=== PATIENT | male | born 1960 | race Caucasian/White ===

== ENCOUNTER 2018-08-27 15:35 | Observation (INO) | payer OTHER ==
[2018-08-27] MEDS ORDERED: METHYLPREDNISOLONE 125 MG INJ ONE (16:11)
[2018-08-27] MEDS ORDERED: ALBUTEROL 2.5 MG/3 ML NEB SOL ONE (16:11)
[2018-08-27] MEDS ORDERED: Magnesium Sulfate 2gm IVPB 2 G/50 ML BAG IV ONE (16:11)
[2018-08-27] MEDS ORDERED: IPRATROPIUM BROM 0.5MG/2.5ML ONE (16:11)
--- NOTE | 2018-08-27 16:28 | RAD REPORT ---
EXAM DESCRIPTION: RAD - Chest Single View - 08/27/2018 4:20 pm CLINICAL HISTORY: SOB Chest pain. COMPARISON: Chest Pa And Lat (2 Views) dated 03/14/2018 FINDINGS: Portable technique limits examination quality. Lungs are mildly emphysematous but clear. The heart is normal in size. No displaced fractures. IMPRESSION: Mild COPD.
[2018-08-27 16:30] LABS: Absolute Lymphocytes (CBC) 2.3 K/uL (0.7-4.9); Absolute Monocytes 1.2 K/uL (0.1-1.3); Basophils % 0.7 % (0-1.3); Eosinophils % 10.1 % (0-4.4); Lymphocytes % 24.4 % (15.3-44.8); Monocytes % 12.2 % (3.3-12.3); RBC Red Blood Cell Count 5.52 M/uL (4.33-5.43)
[2018-08-27 16:41] LABS: Protime INR 1.02
[2018-08-27 16:55] LABS: ALT/SGPT 16 U/L (12-78); AST/SGOT 9 U/L (15-37); Albumin 3.6 g/dL (3.4-5.0); Alkaline Phosphatase 71 U/L (45-117); BUN Blood Urea Nitrogen 15 mg/dL (7-18); Bicarbonate 26 mmol/L (21-32); Bilirubin Direct < 0.1 mg/dL (0-0.2); Bilirubin Total 0.3 mg/dL (0.2-1.0); Glucose Level 247 mg/dL (74-106); Magnesium 2.1 mg/dL (1.8-2.4); NT PRO-BNP 10 pg/mL (<125); Potassium 4.1 mmol/L (3.5-5.1); Protein, Total 8.3 g/dL (6.4-8.2); Sodium Level 137 mmol/L (136-145)
[2018-08-27] MEDS ORDERED: NA CHLORIDE 0.9% 1,000 ML ONE (16:55)
[2018-08-27] MEDS ORDERED: LEVALBUTEROL 1.25 MG/3 ML NEB ONE (17:13)
--- NOTE | 2018-08-27 17:27 | RAD REPORT ---
EXAM DESCRIPTION: CT - Chest For Pe Angio - 08/27/2018 5:19 pm CLINICAL HISTORY: Chest pain. SOB COMPARISON: No comparisons TECHNIQUE: CT angiogram of the pulmonary arteries was performed with MIP. All CT scans are performed using dose optimization technique as appropriate and may include automated exposure control or mA/KV adjustment according to patient size. FINDINGS: No evidence of pulmonary thromboembolism. No acute aortic finding demonstrated. Evidence of a mild aortic coarctation. The lungs are clear. No significant pericardial or pleural fluid. No concerning bony finding. IMPRESSION: No evidence of pulmonary thromboembolism. Mild aortic coarctation noted. No acute intrapulmonary finding.
--- NOTE | 2018-08-27 18:52 | EDPHYS ---
Physician Documentation [facility] Name: Donovan Baxter Age: 57 yrs Sex: Male : 1960 Arrival Date: 08/27/2018 Time: 15:37 Bed 8 Private MD: Hari Machuca ED Physician Stas Beuno HPI: 08/27 16:09 This 57 yrs old Male presents to ER via Wheelchair with complaints of cp Breathing Difficulty. 16:09 The patient has shortness of breath at rest. Onset: The symptoms/episode began/occurred cp 3 day(s) ago. Duration: The symptoms are continuous, and are steadily getting worse. The patient's shortness of breath is aggravated by talking, walking. Associated signs and symptoms: Pertinent positives: productive cough, Pertinent negatives: diaphoresis, fever, hemoptysis, vomiting. Severity of symptoms: in the emergency department the symptoms are unchanged despite home interventions. Historical: - Allergies: 15:45 No Known Allergies; hb - PMHx: 15:45 COPD; hb - PSHx: 15:45 Appendectomy; hb - Immunization history:: Adult Immunizations up to date. - Social history:: Smoking status: Patient/guardian denies using tobacco. - Ebola Screening: : No symptoms or risks identified at this time. ROS: 16:12 Eyes: Negative for injury, pain, redness, and discharge. cp 16:12 Constitutional: Negative for body aches, chills, fever, poor PO intake. 16:12 ENT: Negative for drainage from ear(s), ear pain, sore throat, difficulty swallowing, difficulty handling secretions. 16:12 Respiratory: Positive for cough, with white sputum, shortness of breath, at rest. wheezing, Negative for hemoptysis. 16:12 Abdomen/GI: Negative for abdominal pain, nausea, vomiting, and diarrhea, constipation, anorexia. 16:12 Back: Negative for pain at rest, pain with movement, radiated pain. 16:12 : Negative for urinary symptoms. 16:12 Skin: Negative for cellulitis, rash. 16:12 Neuro: Negative for altered mental status, headache, weakness. 16:12 All other systems are negative. Exam: 16:14 Head/Face: Normocephalic, atraumatic. cp 16:14 Constitutional: The patient appears alert, awake, non-diaphoretic, non-toxic, well developed, well nourished, in obvious distress, mildly distressed. 16:15 Eyes: Periorbital structures: appear normal, Conjunctiva: normal, no exudate, no cp injection, Lids and lashes: appear normal, bilaterally. 16:15 ENT: External ear(s): are unremarkable, Ear canal(s): are normal, clear, TM's: bulging, cp is not appreciated, bilaterally, dullness, bilaterally, erythema, is not appreciated, bilaterally, Nose: is normal, Mouth: Lips: moist, Oral mucosa: moist, Posterior pharynx: Airway: no evidence of obstruction, patent, Tonsils: are normal in appearance, Uvula: midline, swelling, is not appreciated, erythema, is not appreciated. 16:15 Neck: ROM/movement: is normal, is supple, without pain, no range of motions limitations, no meningismus, no nuchal rigidity, Lymph nodes: no appreciated lymphadenopathy. 16:15 Chest/axilla: Inspection: normal, Palpation: is normal, no crepitus, no tenderness. 16:15 Cardiovascular: Rate: tachycardic, Rhythm: regular, Edema: is not appreciated, JVD: is not appreciated. 16:15 Respiratory: moderate respiratory distress is noted, Respirations: labored breathing, that is moderate, pursed lip breathing, that is moderate, tachypnea, that is moderate, Breath sounds: decreased breath sounds, that are moderate, throughout, stridor, is not appreciated, + upper airway congestion. wheezing: that is mild, is heard diffusely. 16:15 Abdomen/GI: Inspection: abdomen appears normal, Palpation: abdomen is soft and non-tender, in all quadrants. 16:15 Back: pain, is absent, ROM is normal. 16:15 Skin: cellulitis, is not appreciated, no rash present. 16:15 Neuro: Orientation: to person, place \T\ time. Mentation: is normal, Cerebellar function: is grossly normal, Motor: moves all fours, strength is normal, Sensation: is normal. 16:37 ECG was reviewed by the Attending Physician. Vital Signs: 15:44 BP 141 / 96; Pulse 112; Resp 20; Temp 97.8; Pulse Ox 94% on R/A; Weight 82.55 kg; hb Height 6 ft. (182.88 cm); Pain 6/10; 16:15 BP 140 / 95; Pulse 102; Resp 24; Pulse Ox 98% on Nebulizer Mask; bp 16:50 BP 133 / 90; Pulse 99; Resp 28; Pulse Ox 93% on R/A; bp 17:04 BP 131 / 90; Pulse 95; Resp 24; Pulse Ox 99% on Nebulizer Mask; bp 17:47 BP 134 / 77; Pulse 98; Resp 20; Pulse Ox 100% on Nebulizer Mask; bp 18:40 BP 110 / 74; Pulse 108; Resp 28; Pulse Ox 89% on R/A; bp 19:30 BP 146 / 81; Pulse 104; Resp 23 S; Temp 98.1(O); Pulse Ox 93% on 1 lpm NC; cc3 20:18 BP 139 / 83; Pulse 103; Resp 20 S; Temp 98(O); Pulse Ox 92% on 1 lpm NC; cc3 21:30 BP 136 / 87; Pulse 101; Resp 17 S; Temp 98(O); Pulse Ox 92% on 1 lpm NC; cc3 15:44 Body Mass Index 24.68 (82.55 kg, 182.88 cm) hb 18:40 POST AMBULATION bp MDM: 15:46 Patient medically screened. cp 16:30 Differential diagnosis: Bronchitis CHF exacerbation, Chronic Obstructive Pulmonary cp Disease Myocardial Infarction pneumonia, Pneumothorax pulmonary edema, Pulmonary Embolism reactive airway disease, Unstable Angina. 18:42 ED course: VS noted. Patient continues to have expiratory wheezes bilaterally, mild cp tachypnea, tachycardia. Patient became short of breath and pale with walking in ED. Will admit for continued breathing treatments. 18:43 Data reviewed: vital signs, nurses notes, lab test result(s), EKG, radiologic studies, cp CT scan, plain films. 18:43 Antibiotic administration: Not indicated, the patient does not have an appreciated cp infiltrate. Test interpretation: by ED physician or midlevel provider: ECG, plain radiologic studies. Response to treatment: the patient's symptoms have mildly improved after treatment, and as a result, I will admit patient. 18:45 Physician consultation: Zenia Dominique MD was called at 18:46, regarding admission, to the medical/surgical unit. left message on voicemail. 08/27 16:02 Order name: Basic Metabolic Panel 08/27 16:02 Order name: CBC with Diff 08/27 16:02 Order name: LFT's; Complete Time: 17:02 08/27 16:56 Interpretation: Normal except: AST 9; TP 8.3; GLOB 4.7; A/G 0.8. 08/27 16:02 Order name: Magnesium; Complete Time: 17:02 cp 08/27 16:02 Order name: NT PRO-BNP; Complete Time: 17:02 08/27 16:02 Order name: PT-INR; Complete Time: 16:56 08/27 16:02 Order name: Troponin (emerg Dept Use Only); Complete Time: 16:56 cp 08/27 16:02 Order name: Influenza Screen (a \T\ B); Complete Time: 16:56 cp 08/27 16:02 Order name: D-Dimer; Complete Time: 16:56 08/27 16:04 Order name: Basic Metabolic Panel; Complete Time: 17:02 EDMS 08/27 16:04 Order name: CBC with Automated Diff; Complete Time: 16:56 EDMS 08/27 21:47 Order name: Glucose, Ancillary Testing EDMS 08/27 21:47 Order name: Glucose, Ancillary Testing EDMS 08/27 21:47 Order name: Glucose, Ancillary Testing EDMS 08/27 16:02 Order name: XRAY Chest (1 view); Complete Time: 16:37 08/27 16:37 Interpretation: Report review. 08/27 16:02 Order name: EKG; Complete Time: 16:05 08/27 16:02 Order name: Cardiac monitoring; Complete Time: 16:20 08/27 16:02 Order name: EKG - Nurse/Tech; Complete Time: 16:59 08/27 16:02 Order name: IV Saline Lock; Complete Time: 16:20 08/27 16:02 Order name: Labs collected and sent; Complete Time: 16:20 08/27 16:02 Order name: O2 Per Protocol; Complete Time: 16:20 08/27 16:02 Order name: O2 Sat Monitoring; Complete Time: 16:20 08/27 17:02 Order name: CT Chest For PE Angio; Complete Time: 17:29 cp 08/27 17:31 Order name: Accucheck Blood Glucose; Complete Time: 17:47 cp 08/27 18:41 Order name: Oxygen Per Protocol; Complete Time: 18:42 cp EC:37 Rate is 101 beats/min. Rhythm is regular. MN interval is normal. QRS interval is cp normal. QT interval is normal. T waves are Flattened in lead aVL. Interpreted by me. Reviewed by me. Administered Medications: 16:00 Drug: Magnesium Sulfate 2 grams Route: IVPB; Infused Over: 2 hrs; Site: right forearm; bp 16:00 Drug: NS 0.9% 500 ml Route: IV; Rate: bolus; Site: right forearm; bp 16:00 Drug: Albuterol - atroVENT (3:1) (2.5 mg - 0.5 mg) 3 ml Route: Nebulizer; bp 16:47 Follow up: Response: Marked relief of symptoms bp 16:00 Drug: SOLU-Medrol 80 mg Route: IVP; Site: right forearm; bp 16:46 Follow up: Response: No adverse reaction bp 16:09 CANCELLED (Physician Discretion): NS 0.9% 500 ml IV at 125 ml/hr continuous cp 16:19 CANCELLED (Physician Discretion): SOLU-Medrol 125 mg IVP once bp 17:00 Drug: Xopenex (3) 1.25 mg Route: Inhalation; bp Point of Care Testing: Blood Glucose: 17:47 Blood Glucose: 246 mg/dL; bp 21:43 Blood Glucose: 316 mg/dL; oe Ranges: Critical Glucose Levels:Adult <50 mg/dl or >400 mg/dl <40 mg/dl or >180 mg/dl Disposition: 08/27/18 18:51 Hospitalization ordered by [place] Deal for Inpatient Admission. Preliminary diagnosis are Hypoxemia, Chronic obstructive pulmonary disease with (acute) exacerbation, Tachypnea, not elsewhere classified. - Bed requested for Telemetry/MedSurg (Inpatient). - Status is Inpatient Admission. cc3 - Condition is Stable. - Problem is an acute exacerbation. - Symptoms have improved. UTI on Admission? No Addendum: 09/04/2018 01:40 Co-signature as Attending Physician, Stas Bueno MD. r n Signatures: Dispatcher [employer] EDMS Bethanie Gonzalez RN RN mw Nieto, Roman, MD MD rn Page, Corey, PA PA cp Baxter, Heather, RN RN hb Peltier, Brian RN RN bp Ragini Fischer cc3 Corrections: (The following items were deleted from the chart) 08/27 16:09 16:02 NS 0.9% 500 ml IV at 125 ml/hr continuous ordered. cp cp 16:19 16:02 SOLU-Medrol 125 mg IVP once ordered. cp bp 19:18 18:51 Hospitalization Ordered by Cleveland Deal MD for Inpatient Admission. Preliminary cp diagnosis is Hypoxemia; Chronic obstructive pulmonary disease with (acute) exacerbation. Bed requested for Telemetry/MedSurg (Inpatient). Status is Inpatient Admission. Condition is Stable. Problem is an acute exacerbation. Symptoms have improved. UTI on Admission? No. cp 21:14 19:18 08/27/2018 18:51 Hospitalization Ordered by Cleveland Deal MD for Inpatient mw Admission. Preliminary diagnosis is Hypoxemia; Chronic obstructive pulmonary disease with (acute) exacerbation; Tachypnea, not elsewhere classified. Bed requested for Telemetry/MedSurg (Inpatient). Status is Inpatient Admission. Condition is Stable. Problem is an acute exacerbation. Symptoms have improved. UTI on Admission? No. cp 22:15 21:14 08/27/2018 18:51 Hospitalization Ordered by Cleveland Deal MD for Inpatient cc3 Admission. Preliminary diagnosis is Hypoxemia; Chronic obstructive pulmonary disease with (acute) exacerbation; Tachypnea, not elsewhere classified. Bed requested for Telemetry/MedSurg (Inpatient). Status is Inpatient Admission. Condition is Stable. Problem is an acute exacerbation. Symptoms have improved. UTI on Admission? No. mw
--- NOTE | 2018-08-27 18:52 | ER ---
Nurse's Notes [facility] Name: Donovan Baxter Age: 57 yrs Sex: Male : 1960 Arrival Date: 08/27/2018 Time: 15:37 Bed 8 Private MD: Hari Machuca Diagnosis: Hypoxemia;Chronic obstructive pulmonary disease with (acute) exacerbation;Tachypnea, not elsewhere classified Presentation: 08/27 15:43 Presenting complaint: Productive cough with white sputum and SOB x 2-3 days. Transition hb of care: patient was not received from another setting of care. Onset of symptoms was August 25, 2018. Risk Assessment: Do you want to hurt yourself or someone else? Patient reports no desire to harm self or others. Care prior to arrival: None. 15:43 Method Of Arrival: Wheelchair hb 15:43 Acuity: SHELIA 3 hb 19:15 Initial Sepsis Screen: Does the patient meet any 2 criteria? No. Patient's initial cc3 sepsis screen is negative. Does the patient have a suspected source of infection? No. Patient's initial sepsis screen is negative. Triage Assessment: 15:45 General: Appears in no apparent distress. comfortable, Behavior is cooperative, bp appropriate for age, anxious. Pain: Denies pain. EENT: No deficits noted. Neuro: Level of Consciousness is awake, alert, obeys commands, Oriented to person, place, time, situation, Appropriate for age. Cardiovascular: Rhythm is sinus tachycardia. Respiratory: Reports shortness of breath cough that is Airway is patent Respiratory effort is even, labored, pursed lip, Respiratory pattern is regular, symmetrical, hyperventilation Onset: The symptoms/episode began/occurred gradually, the patient has moderate shortness of breath. GI: No signs and/or symptoms were reported involving the gastrointestinal system. : No signs and/or symptoms were reported regarding the genitourinary system. Derm: No deficits noted. Musculoskeletal: Circulation, motion, and sensation intact. Range of motion: intact in all extremities. Historical: - Allergies: 15:45 No Known Allergies; hb - PMHx: 15:45 COPD; hb - PSHx: 15:45 Appendectomy; hb - Immunization history:: Adult Immunizations up to date. - Social history:: Smoking status: Patient/guardian denies using tobacco. - Ebola Screening: : No symptoms or risks identified at this time. Screenin:00 Abuse screen: Denies threats or abuse. Denies injuries from another. Nutritional bp screening: No deficits noted. Tuberculosis screening: No symptoms or risk factors identified. Fall Risk None identified. Assessment: 15:50 General: SEE TRIAGE NOTE. Cardiovascular: Rhythm is sinus tachycardia. Respiratory: bp Airway is patent Respiratory effort is even, labored, pursed lip, Respiratory pattern is regular, symmetrical, hyperventilation Breath sounds with wheezes bilaterally. : No signs and/or symptoms were reported regarding the genitourinary system. 17:03 Reassessment: MEDS INFUSING, PT STATING SOME RELIEF OF S/S. bp 18:00 Reassessment: CT COMPLETED, RESULTS PENDING. bp 18:41 Reassessment: SPO2 89 POST AMBULATION, +EXPIRATORY WHEEZES AND PURSED LIP BREATHING. bp 19:15 Reassessment: Patient appears in no apparent distress at this time. Patient and/or cc3 family updated on plan of care and expected duration. Pain level reassessed. Patient is alert, oriented x 3, equal unlabored respirations, skin warm/dry/pink. Received this male patient from morning shift RN Claus as a case of breathing difficulty for admission awaiting admission orders and room availability. With IV cannula gauge 20 at the right wrist saline locked. On oxygen therapy by nasal cannula at 1LPM saturating at 93%. 20:18 Reassessment: Patient appears in no apparent distress at this time. Patient and/or cc3 family updated on plan of care and expected duration. Pain level reassessed. Patient is alert, oriented x 3, equal unlabored respirations, skin warm/dry/pink. 21:43 Reassessment: Patient appears in no apparent distress at this time. Patient and/or cc3 family updated on plan of care and expected duration. Pain level reassessed. Patient is alert, oriented x 3, equal unlabored respirations, skin warm/dry/pink. Patient asked for his blood sugar to be checked because he thinks it's low so checked with result of 316 mg/dL, patient said he's taking insulin 70/30 twice a day and he hasn't taken his night dose, informed PA Page and he said the patient is for admission so he will be ordered with his regular dose of insulin once admitted. Patient denies pain at this time. 21:50 Reassessment: Patient appears in no apparent distress at this time. Patient and/or cc3 family updated on plan of care and expected duration. Pain level reassessed. Patient is alert, oriented x 3, equal unlabored respirations, skin warm/dry/pink. Room available at 431, report called and handed over to WALE Whitaker for continuity of care and management. 22:10 Reassessment: Patient appears in no apparent distress at this time. Patient and/or cc3 family updated on plan of care and expected duration. Pain level reassessed. Patient is alert, oriented x 3, equal unlabored respirations, skin warm/dry/pink. Patient left ER for admission vitally stable by wheelchair escorted by medical laboratory technician Zaire, on oxygen therapy by nasal cannula. Patient denies pain at this time. Patient states symptoms have improved. Vital Signs: 15:44 BP 141 / 96; Pulse 112; Resp 20; Temp 97.8; Pulse Ox 94% on R/A; Weight 82.55 kg; hb Height 6 ft. (182.88 cm); Pain 6/10; 16:15 BP 140 / 95; Pulse 102; Resp 24; Pulse Ox 98% on Nebulizer Mask; bp 16:50 BP 133 / 90; Pulse 99; Resp 28; Pulse Ox 93% on R/A; bp 17:04 BP 131 / 90; Pulse 95; Resp 24; Pulse Ox 99% on Nebulizer Mask; bp 17:47 BP 134 / 77; Pulse 98; Resp 20; Pulse Ox 100% on Nebulizer Mask; bp 18:40 BP 110 / 74; Pulse 108; Resp 28; Pulse Ox 89% on R/A; bp 19:30 BP 146 / 81; Pulse 104; Resp 23 S; Temp 98.1(O); Pulse Ox 93% on 1 lpm NC; cc3 20:18 BP 139 / 83; Pulse 103; Resp 20 S; Temp 98(O); Pulse Ox 92% on 1 lpm NC; cc3 21:30 BP 136 / 87; Pulse 101; Resp 17 S; Temp 98(O); Pulse Ox 92% on 1 lpm NC; cc3 15:44 Body Mass Index 24.68 (82.55 kg, 182.88 cm) hb 18:40 POST AMBULATION bp ED Course: 15:37 Patient arrived in ED. dl4 15:37 Hari Machuca DO is Private Physician. dl4 15:44 Triage completed. hb 15:45 Arm band placed on. hb 15:46 Keshawn Wayne PA is PHCP. cp 15:46 Stas Bueno MD is Attending Physician. cp 15:47 Claus Lacey, WALE is Primary Nurse. bp 16:00 Patient has correct armband on for positive identification. Bed in low position. Call bp light in reach. Side rails up X2. 16:00 Inserted saline lock: 20 gauge in right forearm, using aseptic technique. Blood bp collected. 16:12 XRAY Chest (1 view) In Process Unspecified. EDMS 16:23 EKG done, by ekg/ecg technician. reviewed by Keshawn PENALOZA. sm3 17:[address] via stretcher. sj 17:19 CT Chest For PE Angio In Process Unspecified. EDMS 18:48 Cleveland Deal MD is Hospitalizing Provider. cp 22:15 No provider procedures requiring assistance completed. Patient admitted, IV remains in cc3 place. Administered Medications: 16:00 Drug: Magnesium Sulfate 2 grams Route: IVPB; Infused Over: 2 hrs; Site: right forearm; bp 16:00 Drug: NS 0.9% 500 ml Route: IV; Rate: bolus; Site: right forearm; bp 16:00 Drug: Albuterol - atroVENT (3:1) (2.5 mg - 0.5 mg) 3 ml Route: Nebulizer; bp 16:47 Follow up: Response: Marked relief of symptoms bp 16:00 Drug: SOLU-Medrol 80 mg Route: IVP; Site: right forearm; bp 16:46 Follow up: Response: No adverse reaction bp 16:09 CANCELLED (Physician Discretion): NS 0.9% 500 ml IV at 125 ml/hr continuous cp 16:19 CANCELLED (Physician Discretion): SOLU-Medrol 125 mg IVP once bp 17:00 Drug: Xopenex (3) 1.25 mg Route: Inhalation; bp Point of Care Testing: Blood Glucose: 17:47 Blood Glucose: 246 mg/dL; bp 21:43 Blood Glucose: 316 mg/dL; oe Ranges: Outcome: 18:51 Decision to Hospitalize by Provider. cp 22:15 Patient left the ED. cc3 22:15 Admitted to Tele accompanied by tech, via wheelchair, room 431, with oxygen, with cc3 chart, Report called to Dahiana Julianne 22:15 Condition: stable 22:15 Instructed on the need for admit, Demonstrated understanding of instructions. Signatures: Dispatcher [employer] Bella Hernandez Corey, PA PA cp Baxter, Heather, RN RN Zaire Corona Brian RN RN Aundrea Ramirez sm3 Ragini Fischer cc3 Gavin Ospina dl4 Corrections: (The following items were deleted from the chart) 18:57 18:41 Reassessment: SPO2 89 POST AMBULATION, +EXPIRATORY WHEEZES bp bp
[2018-08-28 01:00] LABS: Urine Appearance CLEAR; Urine Bilirubin NEGATIVE (NEG); Urine Blood NEGATIVE (NEG); Urine Color YELLOW; Urine Glucose 3+ (NEG); Urine Protein NEGATIVE (NEG); Urine Specific Gravity >=1.030 (1.005-1.030); Urine Urobilinogen 0.2 mg/dL (0.2-1.0)
[2018-08-28 01:01] LABS: Urine Microscopic Reflex NO UMIC
[2018-08-28] MEDS ORDERED: MORPHINE 2 MG/ML SYR IV ONE (01:40)
[2018-08-28] MEDS: ALBUTEROL 2.5 MG/3 ML NEB SOL NEB SCH ×2 (01:50→07:30)
[2018-08-28] MEDS: IPRATROPIUM BROM 0.5MG/2.5ML NEB SCH ×2 (01:50→07:30)
[2018-08-28] MEDS: METHYLPREDNISOLONE 125 MG INJ IV SCH ×2 (01:51→05:50)
[2018-08-28] MEDS ORDERED: CEFTRIAXONE/SWI 1gm 1 GM/10 ML SYR ONE (02:19)
[2018-08-28] MEDS ORDERED: LORATADINE 10 MG TAB PO SCH (08:00)
[2018-08-28] MEDS ORDERED: CEFTRIAXONE 1 GM/NS 50 ML 1 GM/50 ML BAG IV SCH (08:00)
[2018-08-28] MEDS ORDERED: GUAIFENESIN/CODEINE 5ML UCUP PO PRN (08:15)
--- NOTE | 2018-08-28 08:19 | P.HP ---
Certification for Inpatient Patient admitted to: Inpatient With expected LOS: >2 Midnights Patient will require the following post-hospital care: None Practitioner: I am a practitioner with admitting privileges, knowledge of patient current condition, hospital course, and medical plan of care. Services: Services provided to patient in accordance with Admission requirements found in Title 42 Section 412.3 of the Code of Federal Regulations Patient History Date of Service: 08/27/18 Reason for admission: shortness of breath History of Present Illness: Patient is a 57-year-old gentleman who came to the hospital with difficulty breathing. Patient was coughing and congested and had wheezing. Patient also gets very anxious when he is not able to breathe after his coughing episodes. He was very short of breath and came into the ER. Initially he was given multiple neb treatments and IV steroids. His clinical condition has improved somewhat. However, once he got to the floor he had another episode were he had a coughing spell and desatted. He was given a neb treatments and placed on O2. He is feeling better after the breathing treatment. Will go ahead and continue with current plan of care for treatment of his COPD. Cough medication as well. Patient also complaining with pain on deep inspiration. His CT scan did not reveal any evidence of pleurisy/pleuritis nor did he have a pneumonia. He probably has COPD exacerbation and he has outpatient Pulmonary follow-up. Patient also needs to refrain from tobacco use with his respiratory condition. At this time patient will be admitted to the hospital for further workup. Allergies No Known Allergies Allergy (Unverified 08/28/18 07:09) Home Medications: Albuterol Inhaler [Ventolin Inhaler] 2 puff IH Q6H PRN 08/27/18 Insulin 70/30 NPH/Reg Human [Novolin 70/30*] 45 units SQ BID 08/27/18 Lisinopril 10 mg PO DAILY 08/27/18 Metformin HCl [Metformin ER Osmotic] 1,000 mg PO BID 08/27/18 Pravastatin Sodium [Pravachol] 80 mg PO BEDTIME 08/27/18 Venlafaxine HCl [Venlafaxine HCl ER] 75 mg PO DAILY 08/28/18 - Past Medical/Surgical History Has patient received pneumonia vaccine in the past: Yes Diabetic: Yes -: COPD -: IDDM -: Hepatitis C -: Appendectomy - Family History Father Medical History: Lung disease - Social History Smoking Status: Current every day smoker Alcohol use: No CD- Drugs: No Caffeine use: Yes Place of Residence: Home Review of Systems 10-point ROS is otherwise unremarkable Physical Examination - Vital Signs Temperature: 97.6 F Blood Pressure: 140/83 Pulse: 97 Respirations: 16 Pulse Ox (%): 94 - Physical Exam General: Alert, In no apparent distress, Oriented x3 HEENT: Atraumatic, PERRLA, Mucous membr. moist/pink, EOMI, Sclerae nonicteric Neck: Supple, 2+ carotid pulse no bruit, No LAD, Without JVD or thyroid abnormality Respiratory: Diminished, Expiratory wheezes Cardiovascular: Regular rate/rhythm, Normal S1 S2, No murmurs Gastrointestinal: Normal bowel sounds, Soft and benign, Non-distended, No tenderness Musculoskeletal: No clubbing, No swelling, No tenderness Integumentary: No rashes Neurological: Normal gait, Normal speech, Normal strength at 5/5 x4 extr, Normal tone, Sensation intact, Cranial nerves 3-12 intact, Normal affect Lymphatics: No axilla or inguinal lymphadenopathy - Studies Laboratory Data (last 24 hrs) 08/27/18 16:15: PT 12.0, INR 1.02 08/27/18 16:15: WBC 9.5, Hgb 15.6, Hct 47.0, Plt Count 250 08/27/18 16:15: Sodium 137, Potassium 4.1, BUN 15, Creatinine 0.96, Glucose 247 H, Magnesium 2.1, Total Bilirubin 0.3, AST 9 L, ALT 16, Alkaline Phosphatase 71 Microbiology Data (last 24 hrs): 08/27/18 16:15 Nasopharnyx Influenza Type A Antigen Screen - Final 08/27/18 16:15 Nasopharnyx Influenza Type B Antigen Screen - Final Assessment & Plan - Problems (Diagnosis) (1) COPD with acute exacerbation Current Visit: Yes Status: Acute (2) Persistent cough Current Visit: Yes Status: Acute (3) Hypoxemia Current Visit: Yes Status: Acute (4) Tobacco abuse Current Visit: Yes Status: Acute (5) DM2 (diabetes mellitus, type 2) Current Visit: Yes Status: Acute Qualifiers: Diabetes mellitus 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 -peak flow measurements -outpatient spirometry or pulmonary function testing -repeat chest x-ray -cough medication and continue anxiolytics long-term -strict BS control Discharge Plan: Home Plan to discharge in: Greater than 2 days - Advance Directives Does patient have a Living Will: No Does patient have a Durable POA for Healthcare: No - Code Status/Comfort Care Code Status Assessed: Yes Code Status: Full Code Critical Care: No Time Spent Managing PTS Care (In Minutes): 50
[2018-08-28] MEDS ORDERED: VENLAFAXINE HCL XR 75 MG CAP PO SCH (09:00)
[2018-08-28] MEDS ORDERED: INSULIN 70/30 100 UNITS/ML SQ SCH (09:00)
[2018-08-28] MEDS ORDERED: METFORMIN ER 500 MG TAB PO SCH (09:00)
[2018-08-28] MEDS ORDERED: CEFTRIAXONE/SWI 1gm 1 GM/10 ML SYR IV SCH (09:00)
--- NOTE | 2018-08-28 10:40 | P.SSS ---
Patient History Date of Service: 08/28/18 Reason for admission: shortness of breath History of Present Illness: Patient is a 57-year-old gentleman who came to the hospital with difficulty breathing. Patient was coughing and congested and had wheezing. Patient also gets very anxious when he is not able to breathe after his coughing episodes. He was very short of breath and came into the ER. Initially he was given multiple neb treatments and IV steroids. His clinical condition has improved somewhat. However, once he got to the floor he had another episode were he had a coughing spell and desatted. He was given a neb treatments and placed on O2. He is feeling better after the breathing treatment. Will go ahead and continue with current plan of care for treatment of his COPD. Cough medication as well. Patient also complaining with pain on deep inspiration. His CT scan did not reveal any evidence of pleurisy/pleuritis nor did he have a pneumonia. He probably has COPD exacerbation and he has outpatient Pulmonary follow-up. Patient also needs to refrain from tobacco use with his respiratory condition. Allergies No Known Allergies Allergy (Unverified 08/28/18 07:09) Home Medications: Albuterol Inhaler [Ventolin Inhaler*] 2 puff IH Q6H PRN 08/27/18 Insulin 70/30 NPH/Reg Human [Novolin 70/30*] 45 units SQ BID 08/27/18 Lisinopril 10 mg PO DAILY 08/27/18 Metformin HCl [Metformin ER Osmotic] 1,000 mg PO BID 08/27/18 Pravastatin Sodium [Pravachol] 80 mg PO BEDTIME 08/27/18 Fluticasone/Umeclidin/Vilanter [Trelegy Ellipta 100-62.5-25] 1 each IH BID #1 blst.w.dev 08/28/18 Guaifenesin [Mucinex] 600 mg PO Q12H PRN #10 tab.er.12h 08/28/18 Venlafaxine HCl [Venlafaxine HCl ER] 75 mg PO DAILY 08/28/18 predniSONE [Deltasone] 20 mg PO BID #20 tab 08/28/18 - Past Medical/Surgical History Has patient received pneumonia vaccine in the past: Yes Diabetic: Yes -: COPD -: IDDM -: Hepatitis C -: Appendectomy - Family History Father -: Lung disease - Social History Smoking Status: Current every day smoker Alcohol use: No CD- Drugs: No Caffeine use: Yes Place of Residence: Home Review of Systems 10-point ROS is otherwise unremarkable Physical Examination - Vital Signs Temperature: 97.6 F Blood Pressure: 140/83 Pulse: 97 Respirations: 16 Pulse Ox (%): 94 - Physical Exam General: Alert, In no apparent distress HEENT: Atraumatic, PERRLA, Mucous membr. moist/pink, EOMI, Sclerae nonicteric Neck: Supple, 2+ carotid pulse no bruit, No LAD, Without JVD or thyroid abnormality Respiratory: Normal air movement, Expiratory wheezes, Inspiratory wheezes Cardiovascular: Regular rate/rhythm, Normal S1 S2 Gastrointestinal: Normal bowel sounds, No tenderness Musculoskeletal: No tenderness Integumentary: No rashes Neurological: Normal gait, Normal speech, Normal strength at 5/5 x4 extr, Normal tone, Normal affect Lymphatics: No axilla or inguinal lymphadenopathy - Studies Laboratory Data (last 24 hrs) 08/27/18 16:15: PT 12.0, INR 1.02 08/27/18 16:15: WBC 9.5, Hgb 15.6, Hct 47.0, Plt Count 250 08/27/18 16:15: Sodium 137, Potassium 4.1, BUN 15, Creatinine 0.96, Glucose 247 H, Magnesium 2.1, Total Bilirubin 0.3, AST 9 L, ALT 16, Alkaline Phosphatase 71 Microbiology Data (last 24 hrs): 08/27/18 16:15 Nasopharnyx Influenza Type A Antigen Screen - Final 08/27/18 16:15 Nasopharnyx Influenza Type B Antigen Screen - Final - Diagnosis (Problem(s)) (1) COPD with acute exacerbation Current Visit: Yes Status: Resolved (2) DM2 (diabetes mellitus, type 2) Current Visit: Yes Status: Chronic 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 Patient while here in the hospital also received 3 nebulizing treatment and had marked improvement in his symptoms. Patient also receiving steroids and was kept on oxygen the patient was successfully weaned off of oxygen while here in the hospital. CT chest was done to rule out any PE versus pneumonia or any other acute abnormality. CT chest was negative for any acute abnormality and was only consistent with mild COPD. Patient currently is prescribed theophylline and trelegy by pulmonology however he has not been taking medications for over 2 weeks since he has not filled it. Patient was educated extensively on medication compliance and the need to take his medication as prescribed by his tack maker to avoid COPD exacerbation. Patient demonstrated understanding. Once patient's condition improved markedly and was successfully weaned off of oxygen. He was then discharged home under stable condition. Patient was asked to follow up with pulmonology from pulmonology is recommendation right after discharge in the office. Patient will also need to refill his prescription for the off Gillian and the rescue inhaler along with maintenance inhaler that was prescribed by pulmonology. Patient does have the PFT test scheduled on Saturday with pulmonology as well. Patient was also given instruction on using nebulizers at home and was provided with smoking cessation for over 10 min. Patient demonstrated understanding and agreement with the plan and thus was discharged home under stable condition - Disposition Disposition: ROUTINE DISCHARGE Condition: FAIR Patient Discharge Instructions: Please followup with pulmonology today after being discharged from the hospital. Medications. 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 Trelegy 2 puffs b.i.d. Prednisone 20 mg b.i.d. for 5 days. Mucinex as needed. You will also need to use your nebulizer with albuterol and ipratropium along with rescue inhaler albuterol for shortness of breath or wheezing Diet: Regular Activity: Ad mela
--- NOTE | 2018-08-28 16:33 | EKG ---
Test Date: 2018-08-27 Test Time: 16:23:54 Rn Mds: HARRIS MEASUREMENT RESULTS: Intervals: Rate: 101 TX: 150 QRSD: 90 QT: 338 QTc: 438 Datto: P: 74 TX: 150 QRS: 76 T: 69 INTERPRETIVE STATEMENTS: Sinus tachycardia Otherwise normal ECG No previous ECG available for comparison Electronically Signed On 08-28-18 16:32:34 CDT by Kedar Lo
[2018-08-28] MEDS ORDERED: ATORVASTATIN 10 MG TAB PO SCH (21:00)
== END 2018-08-28 11:25 | disposition home or self-care (01) ==
LOC: ER 15:35 → INTOOBSV 21:54 → 4TH 21:54
PROVIDERS: ADMIT Hospitalist; ATTEND Family Medicine
DX: J44.1 Chronic obstructive pulmonary disease with (acute) exacerbation (principal); R09.02 Hypoxemia; E11.9 Type 2 diabetes mellitus without complications; F17.200 Nicotine dependence, unspecified, uncomplicated; Z79.4 Long term (current) use of insulin; Z79.899 Other long term (current) drug therapy; Z86.19 Personal history of other infectious and parasitic diseases
CPT/HCPCS: 93005; 87070; 85025; 80048; 36415; 83735; 87205; 85610; 82962 ×4; 85379; 80076; 81003; 84484; 83880; 87804 ×2; 71275; 71045; 94640 ×2; 96375; 96374; 99285; Q9967; J2270; J3475; J0696; J7030; J2930 ×3; G0378 ×2